=== PATIENT | female | born 1945 | race Caucasian/White ===

== ENCOUNTER 2023-03-07 09:43 | Outpatient (REF) | payer OTHER, SELFPAY ==
--- NOTE | ~2023-03-07 | XR_ITS ---
EXAMINATION: XR LUMBOSACRAL SPINE WITH OBLIQUES CLINICAL INFORMATION: Spinal stenosis without neurogenic claudication. COMPARISON: None available. TECHNIQUE: AP and lateral views of lumbar spine with flexion and extension views. FINDINGS: There is moderate scoliosis convex to the left. Degenerative changes are present throughout the lumbosacral spine at all levels, most marked at L3-L4, L4-L5 and L5-S1. There is grade 1 anterolisthesis of L4 upon L5 with borderline grade 2 anterolisthesis of L5 upon S1. At L4-L5, there is a reduction with extension and increases with flexion. The findings at L5-S1 appears stable between flexion and extension. XR/XR lumbar spine 4V min IMPRESSION: Degenerative changes lumbar spine with grade 1 anterolisthesis L4 upon L5 and borderline grade 2 anterolisthesis L5 upon S1 as described above.
== END 2023-03-07 09:44 | disposition home or self-care (01) ==
LOC: HO.HOSX 09:43
PROVIDERS: Visit Provider Physician Assistant
DX: M48.061 Spinal stenosis, lumbar region without neurogenic claudication (principal)
CPT/HCPCS: 72110

== ENCOUNTER 2023-03-07 09:43 | Outpatient (AMB) | payer OTHER, SELFPAY ==
--- NOTE | 2023-03-07 10:21 | A.SPINEOV_ITS ---
Intake Intake Visit Reasons: spinal stenosis Intake Note: Mrs. Allen is here today c/o low back pain. MRI done @ [facility]/brought disc. Medical Records Custodian Required: No Assessment & Plan Assessment & Plan (1) Lumbar stenosis: Code(s): M48.061 - Spinal stenosis, lumbar region without neurogenic claudication Plan Dear Shaniqua, Thank you for referring Mrs Allen to our office today. This is a very nice 77-year-old female presents for evaluation today of bilateral leg pain. The patient reports she has had a longstanding history that has been getting progressively worse making it difficult to stand walk. The pain goes down into her legs and she will even get dysesthesias in the bottom of her feet. If she sits down the pain will get better, does not always necessarily go away. She can still the burning even if she sitting but the functional component of when she is standing and walking gives her a significant amount of discomfort. Positive shopping cart sign. She was evaluated with an MRI found to have severe stenosis at L4-5 and was referred to us for evaluation. She is in the middle of physical therapy and that currently does give her some relief. She tried duloxetine and gabapentin but it gave her hallucinations and severe depression. She does take naproxen if she is having a really bad day. There is not a big component of back pain with the situation she just describes it as little pinching feeling. PMH: She is very healthy woman for her age, should history of carpal tunnel release, section. Borderline high cholesterol. Denies any heart disease, pulmonary issues, bleeding disorders, kidney issues etc. Social hx: She does not smoke Medications: She only takes naproxen as needed Allergies: Cipro, gabapentin and duloxetine Physical exam: She is awake alert oriented, strength is intact, she can stand on her own out of a chair, reflexes absent. Imaging review: Lumbar MRI which was done in June 2022 at [facility], shows scoliosis, grade 1 spondylolisthesis at L4-5 with severe stenosis, she has severely collapsed discs at multiple levels. At L5-S1 she has bilateral foraminal stenosis at the L5 foramen, and some moderate central canal stenosis Impression: This is a very nice 77-year-old female presents with what sounds like fairly classic neurogenic claudication with standing walking. She does not have much in the way of back pain. She does still continue to have a little bit of discomfort when she sitting but the primary functional limitation is when she is standing and walking. She has good days and bad days. She is very limited when she is having a bad day and that is frustrating her quality of life. I reviewed her MRI with her, showed her all the pertinent findings including the severe stenosis at L4-5 as well as in the L5 foramen. I think this is the symptomatic level at L4-5. The big question is whether not the scoliosis and spondylolisthesis are big contributing factor. Fortunately she has no significant back pain. I will send her for flexion-extension x-rays. I will review her imaging with Dr. Jeff and get back to her with a final plan. I did describe to her a simple lumbar decompression with the recovery, risks etc. as long as there is no overt signs of instability on her x-rays. Thank you for allowing us to care for your patient. The total time spent with this visit with this patient was 45 minutes reviewing history, physical exam, lumbar imaging review, and implementation of treatment plan or further diagnostic testing Destin Jeff MD,PhD [facility] [employer] Orders: Orders XR lumbar spine 4V min Today M48.061 - Spinal stenosis, lumbar region without neurogenic claudication Coding Level of Care Code New Pt Level 4 (46972) Diagnoses Lumbar stenosis M48.061
== END 2023-03-07 11:14 | disposition home or self-care (01) ==
PROVIDERS: Referring Provider Family Medicine; Visit Provider Physician Assistant
DX: M48.061 Spinal stenosis, lumbar region without neurogenic claudication (principal)
CPT/HCPCS: 99204

== ENCOUNTER 2023-05-08 06:07 | Day surgery (SDC) | payer OTHER, SELFPAY ==
--- NOTE | 2023-04-17 | ECG_ITS ---
Test Reason : Pre Op Blood Pressure : / mmHG Vent. Rate : 057 BPM Atrial Rate : 057 BPM P-R Int : 184 ms QRS Dur : 086 ms QT Int : 448 ms P-R-T Axes : 063 007 052 degrees QTc Int : 436 ms Sinus bradycardia Cannot rule out Anterior infarct , age undetermined Abnormal ECG No previous ECGs available Referred By: Alma Delia Mclean Electronically Signed By:DELROY BLACKWELL
[2023-04-17 13:02] VITALS: BP 148/71; PULSE 64; RESP 16; O2SAT 99; BMI 26.9
--- NOTE | 2023-04-17 13:48 | P.CONAN_ITS ---
Documented by User: Alma Delia Mclean NP 04/30/23 14:04 HPI - Anesthesia Eval Consult details Narrative: 77yo F for L4-5 Midline Sparing Decompression, 05/08/23 No recent illness No CP/SOB with minimal activity r/t back pain. Smoker Routine PCP eval 07/2022. Stable. PMFSH Active Problems Active Problems: All Active Problems (Updated 04/17/23 @ 13:32 by Elva Loera, ALLISON) Lumbar stenosis (Acute) Past Medical History Medical History (Updated 05/08/23 @ 06:25 by Carmelita Rodrigues RN) HLD (hyperlipidemia) Cat bite Scoliosis History of depression Anxiety Shoulder pain, right Hx of Lyme disease Peripheral neuropathy Family History Family history of problems with anesthesia: No Surgical History Surgical History (Updated 04/17/23 @ 12:43 by Elva Loera RN) Hx of colonoscopy History of carpal tunnel surgery of left wrist Hx of section History of Problems with Anesthesia: No Social History Social History Are you a primary care director to a significant other at home: No Do you presently have visiting nurse or other home services: No Patient Tobacco Use Status: Current everyday Tobacco user Tobacco use type: Cigarette Cigarettes Per Day: 10 Years Smoked: 20+ Smoked in Last 30 Days: Yes Use of substances other than those prescribed or required for medical reasons: No Have you been hit, kicked, punched, or otherwise hurt by someone within the past year? If so, by whom?: No Are you DNR?: No Advance Directives: No Advance Directives Information Provided: Yes Advance Directives on File: No Recently lost weight without trying: No Nutrition Risks: Surgical patient >75years Meds Allergies Allergy/AdvReac Type Severity Reaction Status Date / Time ciprofloxacin Allergy Severe Hives-all Verified 04/17/23 13:55 Cipro related antibiotics duloxetine AdvReac Severe Hallucinati Verified 04/17/23 12:48 ons gabapentin AdvReac Severe Depression Verified 04/17/23 12:48 Home Medications Medication Instructions Recorded Confirmed Last Taken Type alpha lipoic acid 1 cap PO DAILY 04/17/23 04/17/23 05/06/23 History ascorbic acid (vitamin C) 500 mg 500 mg PO DAILY 04/17/23 04/17/23 05/06/23 History tablet diphenhydramine HCl 50 mg capsule 50 mg PO BEDTIME PRN Anxiety 04/17/23 04/17/23 05/06/23 History (Sleep Aid (diphenhydramine)) lysine 500 mg tablet (L-Lysine) 500 mg PO DAILY 04/17/23 04/17/23 05/06/23 History naproxen 250 mg PO DAILY PRN Pain 04/17/23 05/08/23 04/29/23 History Exam Exam Date and Time: April 17, 2023 1348 Height,Weight and Vital Signs: Height 5 ft 1 in Weight 64.637 kg Last Vital Signs Pulse 64 04/17/23 13:02 Resp 16 04/17/23 13:02 BP 148/71 H 04/17/23 13:02 Pulse Ox 99 04/17/23 13:02 O2 Del Method Room Air 04/17/23 13:02 Pertinent Lab Results Pertinent Lab Results: 07/2022 CBC and CMP from outside facility: ALL WNL Narrative Narrative: EKG 03/2023 Vent. Rate : 057 BPM ? ? Atrial Rate : 057 BPM ?? P-R Int : 184 ms? QRS Dur : 086 ms ? ? QT Int : 448 ms ? ? ? P-R-T Axes : 063 007 052 degrees ?? QTc Int : 436 ms ? Sinus bradycardia Cannot rule out Anterior infarct , age undetermined Abnormal ECG No previous ECGs available Compared with previous outside EKG from 2013, no obvious change. Airway Mallampati Class: II TM Dist: >3cm Neck ROM: Full Loose/Missing/Broken Teeth: No (capped molars and right side permanent bridge) Heart: RRR Lungs: CTAB Assessment and Plan Assessment Anesthesia Assessment: Anesthesia Plan Discussed, Smoking Cess. Discussed and PAT Visit Final Anesthetic Review Family History of Problems with Anesthesia: No History of Problems with Anesthesia: No Documented by User: Harsha Alonzo MD 05/08/23 10:22 [facility] Past Medical History Medical History (Updated 05/08/23 @ 06:25 by Carmelita Rodrigues RN) HLD (hyperlipidemia) Cat bite Scoliosis History of depression Anxiety Shoulder pain, right Hx of Lyme disease Peripheral neuropathy Surgical History Surgical History (Updated 04/17/23 @ 12:43 by Elva Loera RN) Hx of colonoscopy History of carpal tunnel surgery of left wrist Hx of section Social History Social History Are you a primary care director to a significant other at home: No Do you presently have visiting nurse or other home services: No Patient Tobacco Use Status: Current everyday Tobacco user Tobacco use type: Cigarette Cigarettes Per Day: 10 Years Smoked: 20+ Smoked in Last 30 Days: Yes Use of substances other than those prescribed or required for medical reasons: No Have you been hit, kicked, punched, or otherwise hurt by someone within the past year? If so, by whom?: No Are you DNR?: No Advance Directives: No Advance Directives Information Provided: Yes Advance Directives on File: No Recently lost weight without trying: No Nutrition Risks: Surgical patient >75years Meds Allergies Allergy/AdvReac Type Severity Reaction Status Date / Time ciprofloxacin Allergy Severe Hives-all Verified 04/17/23 13:55 Cipro related antibiotics duloxetine AdvReac Severe Hallucinati Verified 04/17/23 12:48 ons gabapentin AdvReac Severe Depression Verified 04/17/23 12:48 Home Medications Medication Instructions Recorded Confirmed Last Taken Type alpha lipoic acid 1 cap PO DAILY 04/17/23 04/17/23 05/06/23 History ascorbic acid (vitamin C) 500 mg 500 mg PO DAILY 04/17/23 04/17/23 05/06/23 History tablet diphenhydramine HCl 50 mg capsule 50 mg PO BEDTIME PRN Anxiety 04/17/23 04/17/23 05/06/23 History (Sleep Aid (diphenhydramine)) lysine 500 mg tablet (L-Lysine) 500 mg PO DAILY 04/17/23 04/17/23 05/06/23 History naproxen 250 mg PO DAILY PRN Pain 04/17/23 05/08/23 04/29/23 History Assessment and Plan Final Anesthetic Review NPO: Yes ASA Class: III Final Preanesthetic Review: No Changes in Pt Med Stat, Meds/Allgs Chart Reviewed, Consent Obtained/Reviewed and Anes Risks/Benef Reviewed Patient Risk: Intermediate Procedure Risk: Intermediate Anesthetic Plan Anesthetic Plan: GA Disposition: Standard PACU
[2023-05-08] VITALS (7 sets, daily range): BP systolic 122–141; BP diastolic 59–70; PULSE 63–86; RESP 10–20; TEMP 36.1–36.3; O2SAT 96–100
--- NOTE | ~2023-05-08 | FL_ITS ---
EXAMINATION: XR FLUOROSCOPY WITH IMAGES CLINICAL INFORMATION: L4-L5 midline sparing decompression. COMPARISON: None available. TECHNIQUE: Fluoroscopy Supervised By: Dr. Jarett Jeff. Fluoroscopy Time: 0.0 minutes. Cumulative Dose: 3.80 mGy. DAP: 0.629 Gycm2. Images: 1. FINDINGS: Image demonstrates surgical instrument projecting over the posterior elements at the L4-5 disc space level. There is anterior subluxation of L4 with respect L5 and L5 with respect to S1. FL/FL guidance in OR IMPRESSION: Fluoroscopy guidance for spine surgery.
[2023-05-08] MEDS: Lactated Ringers 1,000 ML 100 ML IVCONT (06:49)
[2023-05-08] MEDS: methocarbamoL 750 MG TABLET PO (06:49)
--- NOTE | 2023-05-08 07:21 | MHC.SHP ---
Pre-Procedural Eval Section A Date of Service: 05/08/23 Section B Chief Complaint: Spinal stenosis, lumbar region without neurogenic Allergies: Allergies Allergy/AdvReac Type Severity Reaction Status Date / Time ciprofloxacin Allergy Severe Hives-all Verified 04/17/23 13:55 Cipro related antibiotics duloxetine AdvReac Severe Hallucinati Verified 04/17/23 12:48 ons gabapentin AdvReac Severe Depression Verified 04/17/23 12:48 Review of Systems Sugical H&P ROS: Negative: Constitution, Cardiovascular, Respiratory, Neurological, Psychiatric, Hem-Onc, Allergic/Immunologic, Gastrointestinal, Genitourinary, Musculoskeletal, Integumentary, Endocrine and Eyes/Ears/Nose/Throat Exam Surgical H&P Exam: Not Evaluated: HEENT, Not Evaluated: Heart, Not Evaluated: Lungs, Not Evaluated: Extremities, Not Evaluated: Abdomen, Not Evaluated: Skin and Not Evaluated: Neurological Plan Diagnosis/Plan: Unchanged I have reviewed the history and physical and performed a pertinent physical examination on my patient. No changes have occurred unless specified. Plan remains the same, L4-5 midline sparing decompression. Time Spent With Patient Time: Total time managing care of this patient today _10___ minutes.
--- NOTE | 2023-05-08 09:43 | P.DS_ITS ---
DS: Providers Provider Date of Service: 05/08/23 Primary care physician: Shaniqua Centeno NP DS: Summary Time Spent with Patient Time attestation: Total time managing care of this patient today ____ minutes. Discharge coordination time: Less than 30 minutes Quality: Safe Use of Opioids Does Pt have an Active Cancer Diagnosis on the Problem List?: No Quality: Stroke Does the patient have a stroke diagnosis?: No Physical Exam Vital Signs: Vital Signs: Last Vital Signs Pulse 64 04/17/23 13:02 Resp 16 04/17/23 13:02 BP 148/71 H 04/17/23 13:02 Pulse Ox 99 04/17/23 13:02 O2 Del Method Room Air 04/17/23 13:02 BMI result Body Mass Index 26.9 DS: Data Data Completed and Pending Labs on day of discharge: Laboratory Results - last 24 hr 05/08/23 06:27 Blood Type AB Positive Antibody Screen NEGATIVE Discharge Plan Discharge Patient Disposition: Home, Self-Care Referrals: Shaniqua Centeno NP [Primary Care Provider] - 1 Week Discharge Medications: New oxycodone 5 mg tablet 5 mg PO Q6H PRN (Reason: moderate-severe pain) Qty: 30 0RF Rx Instructions: Partial Fill upon patient request. Continued ascorbic acid (vitamin C) 500 mg Tablet 500 mg PO DAILY lysine [L-Lysine] 500 mg Tablet 500 mg PO DAILY alpha lipoic acid 1 cap PO DAILY naproxen 250 mg PO DAILY PRN (Reason: Pain) diphenhydramine HCl [Sleep Aid (diphenhydramine)] 50 mg Capsule 50 mg PO BEDTIME PRN (Reason: Anxiety) Discharge Orders: Discharge Order (Routine); Ordered 05/08/23 Ordered By: Dirk Davidson Diet: Advance to usual diet Activity on Discharge: As tolerated Activity Restrictions/Additional Instructions: After your spinal surgery we ask you to observe the following restrictions/guidelines: Activity: It is normal to feel some discomfort as you increase your activity, but that will improve with time. We ask you avoid heavy lifting or acitivities that cause pain. As a general rule, 8lbs is a safe limit for lifting right after surgery. Walk as much as you feel comfortable but not to exhaustion. You will feel extra tired the first few days after surgery. Stay well hydrated. It is OK to walk up and down stairs You may return to driving when you are off narcotics (such as vicodin, oxycodone, dilaudid, etc), and you are back to normal functional capacity. If you have any concerns please check with office before driving. Return to work is specific to each patient and each surgery, so please speak wi th your doctor/PA at first follow up. Please bring paperwork such as FMLA at that time if you need it filled out. Medications: We will give you a short supply of narcotics after surgery (usually one weeks worth). If you need more please call the office but do not use more than prescribed. You will need to give our office 48 hours notice if you need narcotics refilled and we do not fill narcotics on weekends or evenings. If you are on a narcotic, it is a good idea to take a stool softener such as colace or senna to avoid constipation If you take blood thinner such as aspirin, Plavix, Coumadin, Effient, Eliquis etc for conditions such as Afib, DVT, Pulmonary embolus, coronary disease, stents etc please speak with your surgeon about specific details as to when you can resume these medications. You can resume NSAIDs on post op day 1 (eg: Motrin, Naproxen, etc). Follow up: Please call the office, , after surgery to arrange a 3 week follow up for wound check. Wound Care: You may remove your dressing on the first day after surgery. You may leave open to air. Please do not remove the steri strips underneath. they will fall off on their own in one week. IT IS NORMAL FOR THE WOUND TO OOZE OR BE BLOODY FOR A FEW DAYS AFTER SURGERY. IF THIS HAPPENS JUST PLACE NEW DRESSING OVER IT TO AVOID STAINING CLOTHES. You may shower on post op day # 1 We ask that you do not let the water soak the wound. If it does get wet, just towel dry lightly. Please do not scrub your incision or place any type of chemical/ointment on the wound. No tub baths, pools or jacuzzis for one month. If you have any leaking or redness from your wound, or fevers, please call the office.
[2023-05-08] MEDS: fentaNYL citrate/PF 100 MCG/2 ML VIAL 25 MCG IVPUSH (10:25)
[2023-05-08] MEDS: oxyCODONE HCl Immed Release 5 MG TABLET 2.5 MG PO (10:27)
--- NOTE | 2023-05-08 12:22 | W.PM.OPN ---
Operative Note Operative Note Date of Service: 05/08/23 Narrative: Preoperative Diagnosis: bilateral L4-5 spinal stenosis/lateral recess stenosis/neural foraminal stenosis Operation: bilateral L4-5 Laminotomy, Partial facetectomy and foraminotomy with use of microscope Consent Informed Consent was obtained for this operation. I have explained the nature, purpose and benefits of the operation. I have discussed the risks and benefit of the operation including possible complications or adverse events with patient/family. Alternative(s) were discussed with the patient with their relative benefits and risks as well as the consequences of not accepting the operation were included in obtaining consent. Surgeon: MARLENA GODDARD MD, PHD Procedure Assisted By: Destin Mancini Pac] Description of Procedure this 78-year-old female suffering from neurogenic claudication. Imaging reviews a degenerative scoliosis. I offered her a midline sparing operation at L4-5 to decompress the thecal sac and exiting nerve root as her bone quality does not allow a correction of the degenerative scoliosis.. The patient was offered a decompression. The procedure complications were explained. The patient was consented. The patient was brought to the operating room and endotracheally intubated. The patient was turned in prone position on the Lizandro frame. Prep and drape was done followed by timeout. The Physician machine assistant provided access. A mid lumbar incision was made followed by release of the paravertebral muscle bilaterally to expose the L4-5 lamina and facet joints. An intraoperative x-ray was obtained to confirm the correct level. The microscope was brought in. I took over the procedure. The high-speed drill was used to do a right L4-5 laminotomy until flavum ligament was reached. a 2. Kerrison was used to expand the laminotomy near flush to the pedicles and to include a partial facetectomy. The flavum and was opened and resected with a 3. Kerrison to decompress the underlying thecal sac. The flavum ligament was removed to decompress the lateral recess and the exiting L5 nerve root. a similar procedure was done for the left side where the exiting L5 nerve root was decompressed. A long nerve hook could be easily passed along the medial side of the pedicles as a sign of adequate decompression. The microscope was removed. Hemostasis was done. The physician machine assistant close the Incision in 2 layers. Steri-Strips were used to approximate incision. An OpSite with Tegaderm was used to cover the incision. All sponge needle counts were correct. Patient was extubated and transported in stable is to recovery room. Anesthesia: General Estimated Blood Loss (ml): 20 ml Complications: None Duration of Surgery: Under 60 Minutes Postoperative Plan: Discharge to home
== END 2023-05-08 12:22 | disposition home or self-care (01) ==
PROVIDERS: PCP Family Medicine; Visit Provider Neurological Surgery
PROC: (CPT 63047; principal; 2023-05-08 07:30)
DX: M48.061 Spinal stenosis, lumbar region without neurogenic claudication (principal); M41.56 Other secondary scoliosis, lumbar region; R20.8 Other disturbances of skin sensation; R26.2 Difficulty in walking, not elsewhere classified; Z79.1 Long term (current) use of non-steroidal anti-inflammatories (NSAID); Z88.8 Allergy status to other drugs, medicaments and biological substances; Z98.890 Other specified postprocedural states
CPT/HCPCS: 63047; 86850; 86900; 86901; 93005; J0131; J0690; J1170; J2405; J3010

== ENCOUNTER → 2023-05-08 06:07 | Outpatient (BNV) | payer OTHER, SELFPAY | PROVIDERS: PCP Family Medicine; Visit Provider Physician Assistant | DX: M48.062 Spinal stenosis, lumbar region with neurogenic claudication (principal) | CPT/HCPCS: 63047; 99499 ==

== ENCOUNTER 2023-05-28 08:52 | Outpatient (AMB) | payer OTHER, SELFPAY ==
--- NOTE | 2023-05-28 09:19 | HO.SPINEOV ---
Intake Intake Visit Reasons: 1st post op Intake Note: Ms. Allen is here today for her 1st post-op visit. 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
== END 2023-05-28 09:35 | disposition home or self-care (01) ==
PROVIDERS: PCP Family Medicine; Visit Provider Physician Assistant
DX: Z48.89 Encounter for other specified surgical aftercare (principal)
CPT/HCPCS: 99024

== ENCOUNTER → 2023-05-28 08:52 | Outpatient (BNVA) | payer OTHER, SELFPAY | PROVIDERS: PCP Family Medicine; Visit Provider Physician Assistant ==

== ENCOUNTER 2024-01-21 08:51 | Outpatient (AMB) | payer OTHER, SELFPAY ==
--- NOTE | 2024-01-21 09:07 | MHC.OFFVIS ---
Vital Signs 01/21/24 09:21 Height 5 ft 1 in Weight 140 lb BMI 26.4 Handedness Right Intake Visit Reasons: New Pt - Left Hand Thumb OA Intake Note: Elisa is a 78 year old right hand dominant female who presents today for a new patient visit for his left O.A thumb pain. States pain is trigger with gripping and grabbing motions. Patient reports that has been feeling better since the weather has gotten warmer. Hx of left CTR 2022. Denies numbness or tingling. Patient would like to discuss surgery vs. other treatment options. Allergies ciprofloxacin Allergy (Severe, Verified 01/21/24 09:23) Hives-all Cipro related antibiotics duloxetine Adverse Reaction (Severe, Verified 01/21/24 09:23) Hallucinations gabapentin Adverse Reaction (Severe, Verified 01/21/24 09:23) Depression HPI HPI New Pt - Left Hand Thumb OA: Details: Elisa is a 78 year old right hand dominant woman who presents with complaints of left thumb pain. She complains of pain in her left thumb, worse with gripping, and grabbing activities. She says she had some occasional locking at times. She says her pain has improved since the weather has warmed up. She has a mass at the [ ], which has been present for many years and has changed in size. She says she is planning to sell her house & move in the next few months. She is busy packing up and cleaning and expects to move in the next 2-3 months. She has a Hx of left carpal tunnel release in 2022 at an outside clinic. She denies any numbness or tingling in her hand. She says she has peripheral neuropathy She has a Hx of smoking and says she smoke[ ] ~10 cigarettes daily for ~20 years. [facility] Medical History (Updated 01/21/24 @ 09:58 by Dariel Lockwood) HLD (hyperlipidemia) Cat bite Scoliosis History of depression Anxiety Shoulder pain, right Hx of Lyme disease Peripheral neuropathy Surgical History (Updated 04/17/23 @ 12:43 by Elva Loera RN) Hx of colonoscopy History of carpal tunnel surgery of left wrist Hx of section Social History Are you a primary technical healthcare consultant to a significant other at home: No Do you presently have visiting nurse or other home services: No Comment: aware of trip hazard Patient Tobacco Use Status: Current everyday Tobacco user Tobacco use type: Cigarette Cigarettes Per Day: 10 Years Smoked: 20+ Review of Systems Const All systems reviewed & are unremarkable except as noted in HPI and below Physical Exam Vital Signs: BMI result Body Mass Index 26.4 Const General: cooperative, healthy appearing and no acute distress Orientation/consciousness: patient oriented x3 HEENT Head: Yes normocephalic and Yes atraumatic Eyes EOM: EOMs intact bilaterally Resp Effort & Inspection: normal respiratory effort and able to speak in complete sentences Cardio Jugular venous distension: no JVD Skin General skin exam: turgor normal Rashes: no rashes Neuro General: patient oriented x3 Extrem Other: Evaluation of Left Upper Extremity: The patient is alert, oriented, and in no acute distress Neuro: Median, Ulnar, Radial nerves motor and sensory intact and sensation is normal to the tips of all digits Vascular: Cap refill brisk ROM: She can make a fist and extend all her digits Visible & palpable locking and catching of the thumb Tender over the a1 sharmin of the thumb Skin: No lacerations or abrasions. General: No Ecchymosis. No Erythema or evidence of infection. There is a mass at the base of the left thumb, measuring about 2 cm in diameter. It is soft and on exam appeared to be fluid filled. It is completely nontender with no overlying skin changes. It is distal edges sitting just proximal to the basal joint of the thumb. Radiographs: 3 views of the left hand shows some left basal joint osteoarthritis with near complete loss of the joint space, subluxation and osteophyte formation. She is got some hyper extension at the MCP joint. She also has osteoarthritis involving multiple D IP joints and the 2nd MCP joint. In looking at her wrist she appears to have a scapholunate advanced collapse wrist deformity with the scaphoid eroding into the distal radius, proximal migration of the capitate and loss of the midcarpal joint. The radial lunate joint appears to be well preserved. Psych Appearance: grossly normal Affect: normal affect Attitude: cooperative Office Procedures Fracture Care Details: No fracture, injection , and aspiration Fracture Billing Code: Fracture Billing Code Assessment & Plan Assessment & Plan (1) Trigger thumb, left thumb: Code(s): M65.312 - Trigger thumb, left thumb Category: Medical (2) Osteoarthritis of carpometacarpal (CMC) joint of left thumb: Code(s): M18.12 - Unilateral primary osteoarthritis of first carpometacarpal joint, left hand Category: Medical (3) Scapholunate advanced collapse of left wrist: Code(s): M19.132 - Post-traumatic osteoarthritis, left wrist Category: Medical (4) Osteoarthritis of left hand: Code(s): M19.042 - Primary osteoarthritis, left hand Category: Medical (5) Mass of soft tissue of left upper extremity: Comment: L thumb Code(s): M79.89 - Other specified soft tissue disorders Category: Medical Plan Assessment & Plan: 1. Left trigger thumb This is her primary complaint today I educated her about this condition I discussed operative and non-operative treatment options The patient would like to proceed with an injection Injection #1: The risks and benefits of a steroid injection including but not limited to risk of damage to blood vessels, nerves, tendons, infection, skin bleaching, failure to improve symptoms, increased pain, and possible need for further injections or other intervention were discussed with the patient and the patient wishes to proceed with the steroid injection. Once consent was obtained, I sterilely prepped the area over the A1 sharmin of the flexor tendon sheath of the Left thumb. I then injected the flexor tendon sheath with a combination of 1 mL of dexamethasone (4mg/ml), and 1% lidocaine. The patient tolerated the procedure well with no complications. She will follow up in March to see how she is doing, she may cancel this appointment if she is doing well She says that she needs to work on decluttering her house to move into a smaller home with her , and would like to consider surgery in the fall if needed. 2. Left hand mass, base of thumb Likely Lipoma I educated her about this condition I discussed operative and non-operative treatment options The patient would like to proceed with an aspiration today Aspiration #1: The risks and benefits of aspiration, including but not limited to risk of damage to blood vessels, nerves, tendons, infection, failure to improve symptoms, increased pain, and possible need for further aspirations or surgical intervention. After obtaining written consent, I sterilely prepped the area over the base of the left thumb. I then injected subcutaneously with a small amount 1% lidocaine. I then passed an 18 gauge needle into what appeared to be a ganglion. No fluid was able to be aspirated today, this now appears to be most consistent with a Lipoma We will manage this conservatively. 3. Left Basal Joint arthritis No complaints today 4. Left SLAC wrist No complaints today 5. Left hand osteoarthritis In multiple DIP joints No complaints today Scribed for Sandhya Nunn MD by Dariel Lockwood, medical claims processor, on 01/21/24 at 9:30 AM, EST. Orders: Orders XR hand LT min 3V Today M79.642 - Pain in left hand Coding Level of Care Code New Pt Level 4 (12497) Diagnoses Trigger thumb, left thumb M65.312 Osteoarthritis of carpometacarpal (CMC) joint of left thumb M18.12 Scapholunate advanced collapse of left wrist M19.132 Osteoarthritis of left hand M19.042 Mass of soft tissue of left upper extremity M79.89 CPT Codes Fracture Care - Fracture Billing Code: Fracture Billing Code ([id number])
[2024-01-21 09:21] VITALS: BMI 26.4
== END 2024-01-21 10:00 | disposition home or self-care (01) ==
PROVIDERS: PCP Family Medicine; Visit Provider Orthopaedic Surgery
DX: M65.312 Trigger thumb, left thumb (principal); M18.12 Unilateral primary osteoarthritis of first carpometacarpal joint, left hand; M19.132 Post-traumatic osteoarthritis, left wrist; M19.042 Primary osteoarthritis, left hand; M79.89 Other specified soft tissue disorders
CPT/HCPCS: 20550; 20600; 99204

== ENCOUNTER 2024-01-21 12:30 | Outpatient (REF) | payer MEDICARE, SELFPAY ==
--- NOTE | ~2024-01-21 | XR_ITS ---
EXAMINATION: XR HAND, LEFT CLINICAL INFORMATION: Pain in left hand, special attention thumb. COMPARISON: None available. TECHNIQUE: PA, lateral, and oblique views of the left hand. FINDINGS: Patient is wearing a ring on her fourth digit. Radiopaque marker placed by technologist to indicate the area of concern as indicated by the patient in the region of the first metacarpophalangeal joint. The bones are diffusely demineralized. Severe degenerative changes in the first carpometacarpal joint with loss of the joint space, subluxation and hypertrophic change. Narrowing of the radiocarpal space with sclerosis and remodeling of subjacent articular surfaces. Narrowing of intercarpal spaces. Advanced degenerative changes in multiple interphalangeal and metacarpophalangeal joints with joint space narrowing and hypertrophic change. XR/XR hand LT min 3V IMPRESSION: 1. Severe degenerative changes in the first carpometacarpal joint. 2. Advanced degenerative changes in radiocarpal, intercarpal, and multiple interphalangeal and metacarpophalangeal joints. 3. Recommend follow up imaging in 10-14 days if fracture is suspected.
== END 2024-01-21 12:31 | disposition home or self-care (01) ==
LOC: HO.HOSX 12:30
DX: M65.312 Trigger thumb, left thumb (principal); M18.12 Unilateral primary osteoarthritis of first carpometacarpal joint, left hand; M19.132 Post-traumatic osteoarthritis, left wrist; M19.042 Primary osteoarthritis, left hand; M79.89 Other specified soft tissue disorders
CPT/HCPCS: 20550; 20600; 73130; J1100

== ENCOUNTER 2024-04-21 08:40 | Outpatient (AMB) | payer OTHER, SELFPAY ==
[2024-04-21 08:45] VITALS: BMI 26.4
--- NOTE | 2024-04-21 08:45 | A.OFFVIS_ITS ---
Vital Signs 04/21/24 08:45 Height 5 ft 1 in Weight 140 lb BMI 26.4 Intake Visit Reasons: OV-Left Hand Thumb OA Intake Note: Elisa is a 78 year old right hand dominant female who presents today for a follow up evaluation of left thumb OA pain. Patient reports no concern today. Patient reports last injection, done 01/21/24, was helpful she does not wish to repeat it today. Allergies ciprofloxacin Allergy (Severe, Verified 04/21/24 08:45) Hives-all Cipro related antibiotics duloxetine Adverse Reaction (Severe, Verified 04/21/24 08:45) Hallucinations gabapentin Adverse Reaction (Severe, Verified 04/21/24 08:45) Depression HPI HPI OV-Left Hand Thumb OA: Details: Elisa is a 79 year old right hand dominant woman who returns to discuss her left trigger thumb. She has a Hx of a trigger thumb injection on 01/21/24. She found the injection helpful for her pain, but she continues to have locking and catching of her thumb. She has a Hx of left carpal tunnel release in 2022 at an outside clinic. She denies any numbness or tingling in her hand. She says she has peripheral neuropathy. She says she did not end up moving, but continues to be working on cleaning & decluttering her house with her . She has a Hx of smoking and says she smokes ~10 cigarettes daily for ~20 years. [facility] Medical History (Updated 04/21/24 @ 08:58 by Dariel Lockwood) HLD (hyperlipidemia) Cat bite Scoliosis History of depression Anxiety Shoulder pain, right Hx of Lyme disease Peripheral neuropathy Surgical History (Updated 04/17/23 @ 12:43 by Elva Loera RN) Hx of colonoscopy History of carpal tunnel surgery of left wrist Hx of section Social History Are you a primary personal care worker to a significant other at home: No Do you presently have visiting nurse or other home services: No Comment: aware of trip hazard Patient Tobacco Use Status: Current everyday Tobacco user Tobacco use type: Cigarette Cigarettes Per Day: 10 Years Smoked: 20+ Review of Systems Const All systems reviewed & are unremarkable except as noted in HPI and below Physical Exam Vital Signs: BMI result Body Mass Index 26.4 Const General: no acute distress and alert Orientation/consciousness: patient oriented x3 Neuro General: patient oriented x3 Extrem Other: Evaluation of Left Upper Extremity: The patient is alert, oriented, and in no acute distress Neuro: Median, Ulnar, Radial nerves motor and sensory intact and sensation is normal to the tips of all digits Vascular: Cap refill brisk ROM: She can make a fist and extend all her digits Visible & palpable catching of the thumb No tenderness over the a1 sharmin of the thumb ADduction deformity of the thumb ++ shoulder sign Not particularly tender at the basal joint There is a mass at the base of the left thumb, measuring ~2 cm in diameter. It is soft and is completely nontender with no overlying skin changes. It is distal edges sitting just proximal to the basal joint of the thumb. We attempted to aspirate it last clinic visit and got no fluid. This is most consistent therefore with a lipoma. Radiographs: 3 views of the left hand shows some left basal joint osteoarthritis with near complete loss of the joint space, subluxation and osteophyte formation. She is got some hyper extension at the MCP joint. She also has osteoarthritis involving multiple D IP joints and the 2nd MCP joint. In looking at her wrist she appears to have a scapholunate advanced collapse wrist deformity with the scaphoid eroding into the distal radius, proximal migration of the capitate and loss of the midcarpal joint. The radial lunate joint appears to be well preserved. Psych Appearance: grossly normal Affect: normal affect Attitude: cooperative Assessment & Plan Assessment & Plan (1) Trigger thumb, left thumb: Code(s): M65.312 - Trigger thumb, left thumb Category: Medical (2) Osteoarthritis of carpometacarpal (CMC) joint of left thumb: Code(s): M18.12 - Unilateral primary osteoarthritis of first carpometacarpal joint, left hand Category: Medical (3) Scapholunate advanced collapse of left wrist: Code(s): M19.132 - Post-traumatic osteoarthritis, left wrist Category: Medical (4) Osteoarthritis of left hand: Code(s): M19.042 - Primary osteoarthritis, left hand Category: Medical (5) Lipoma of hand: Comment: L thumb base Code(s): D17.20 - Benign lipomatous neoplasm of skin and subcutaneous tissue of unspecified limb Category: Medical Plan Assessment & Plan: 1. Left trigger thumb, S/P injection Date of injection: 01/21/24 I educated her about this condition She found her injection helpful for her pain, but she continues to have locking of her thumb I discussed operative and non-operative treatment options The patient would like to take time to consider surgical intervention, and she says she has other issues to focus on at this time She can follow up prn 2. Left hand lipoma, base of thumb Measuring ~2cm in diameter I educated her about this condition We will continue to manage this conservatively. 3. Left Basal Joint arthritis No complaints today 4. Left SLAC wrist No complaints today 5. Left hand osteoarthritis In multiple DIP joints No complaints today Scribed for Sandhya Nunn MD by Dariel Lockwood, nurses medical assistants phlebotomists, on 04/21/24 at 8:55 AM, EST. Scribe Plan - Not visible on output: Scribed for Sandhya Nunn MD by Dariel Lockwood, nurses medical assistants phlebotomists, on [ ] at [ ], EST. Coding Level of Care Code Est Pt Level 3 (60362) Diagnoses Trigger thumb, left thumb M65.312 Osteoarthritis of carpometacarpal (CMC) joint of left thumb M18.12 Scapholunate advanced collapse of left wrist M19.132 Osteoarthritis of left hand M19.042 Lipoma of hand D17.20
== END 2024-04-21 09:00 | disposition home or self-care (01) ==
PROVIDERS: PCP Family Medicine; Visit Provider Orthopaedic Surgery
DX: M65.312 Trigger thumb, left thumb (principal); M18.12 Unilateral primary osteoarthritis of first carpometacarpal joint, left hand; M19.132 Post-traumatic osteoarthritis, left wrist; M19.042 Primary osteoarthritis, left hand; D17.20 Benign lipomatous neoplasm of skin and subcutaneous tissue of unspecified limb
CPT/HCPCS: 99213

== ENCOUNTER → 2024-04-21 08:40 | Outpatient (BNVA) | payer OTHER, SELFPAY | PROVIDERS: PCP Family Medicine; Visit Provider Orthopaedic Surgery ==